=== PATIENT | female | born 1940 | race Caucasian/White ===

== ENCOUNTER 2024-02-22 13:11 | Emergency (ER) | payer MEDICARE, OTHER, SELFPAY ==
[2024-02-22 13:13] VITALS: BP 150/74
--- NOTE | 2024-02-22 14:39 | ED.GENMED ---
History of Present Illness
General
Chief Complaint: Fall
Source: patient
Exam Limitations: none
Time Seen by Provider: 02/22/24 13:34
Nursing documentation reviewed up to this point in time: agreed with
History of Present Illness
History of Present Illness:
83-year-old female with past medical history of A-fib currently on Xarelto presenting to the emergency department after mechanical fall hitting her upper lip left hand and left knee no loss of and is otherwise feels well was able to walk into the
ER. Denies any numbness weakness nausea vomiting abdominal pain or neck pain.
Past History
Past History
ED Past Medical History: Arrthythmia, GERD, HTN, Hypercholesterolemia and NIDDM
ED Past Surgical History: Appendectomy and Cardiac (Ablation)
Social History
Tobacco: Non-smoker
Alcohol: Occasional
Drug: None
Personal:
Living: with family
Review of Systems
Review of Systems
Allergies reviewed?: Yes
All Other Systems: ROS reviewed and negative except as documented in HPI and ROS
Phy Exam
Physical Exam
Physical Exam:
GENERAL: Alert , in no apparent distress
EYE: pupils equal and reactive
NECK: No posterior neck pain no midline neck pain supple, no significant adenopathy.
ENT: o/p clr, mmm.
CARDIAC: Regular rate and rhythm .
LUNGS: Clear breath sounds bilaterally, no acute respiratory distress, no wheezes/rales/rhonchi
ABDOMEN: Soft, without focal tenderness, no r/g, no cvat
NEUROLOGICAL: Alert and oriented, no focal neuro deficits
SKIN: Warm and dry, skin intact.
MUSCULOSKELETAL: Slight bruising to the left hand, slight bruising to the left anterior knee with good range of motion and strength of both. No edema, well perfused.
PSYCH: Normal and appropriate interaction.
Course
Orders/Labs/Results
Orders:
Orders
02/22/24 13:16
CT Head W/o Iv Contrast Urgent
Reason For Exam: fall
CR Hand - Left Min 3 Views Urgent
Comment:
Reason For Exam: fall
CR Knee - Left 4 Or More View* Urgent
Comment:
Reason For Exam: fall
Vital Signs
Initial and Last Documented VS:
Initial Vital Signs
Temp Pulse Resp BP Pulse Ox
98.5 F 73 16 150/74 96
02/22/24 13:13 02/22/24 13:13 02/22/24 13:13 02/22/24 13:13 02/22/24 13:13
Last Documented Vital Signs
Temp Pulse Resp BP Pulse Ox
98.5 F 95 16 125/82 98
02/22/24 13:13 02/22/24 16:03 02/22/24 16:03 02/22/24 16:03 02/22/24 16:03
MDM/Problems Addressed
MDM/Problems Addressed:
83-year-old female presenting to the emergency department today after a mechanical fall hitting her upper lip left hand and left knee. Patient does have some bruising to the left hand and knee. X-ray without signs of fracture patient with soft
tissue injury to the area. Upper lip with no external laceration small internal laceration that does not require any emergent closure. No change in dentition no additional signs of trauma. Concerning the patient's on Xarelto CT scan of the head
was performed. CT without emergent findings stable for discharge return precautions given.
*Critical Care Note
Total Time (30-74mins, 75-104mins- exclusive of procedures): Not Applicable
ED Attending Note
-
Portions of this chart may have been created with voice recognition software.� Occasional wrong word or��sound alike� substitutions may have occurred due to the inherent limitations of voice recognition software.
Discharge Plan
Departure
Patient Disposition: Home (Routine Discharge)
Date of Disposition: 02/22/24
Time of Disposition: 16:01
Patient with high blood pressure during this ER visit?: No
Condition: Good
Covid-19: Not Applicable
Discharge Problem:
Fall, Contusion of hand, Contusion of knee, Injury of lip
Instructions: Preventing falls in adults
Prescriptions:
No Action
simvastatin 20 MG tablet
20 mg PO HS
Xarelto 20 MG tablet
20 mg PO QPM
metoprolol succinate 50 MG tablet extended release 24 hr
50 mg PO QPM
naproxen sodium [Aleve] 220 MG tablet
220 mg PO DAILYPRN PRN (Reason: pain)
metformin 500 MG tablet
500 mg PO BID@0800,1700 Qty: 0 0RF
valsartan-hydrochlorothiazide [Diovan HCT] 160-25 mg Tablet
1 tab PO DAILY
oxycodone 5 mg tablet
5 - 10 mg PO Q4HPRN PRN (Reason: moderate to severe pain) Qty: 14 0RF
Referrals:
Devan Christian MD [Family Provider] -
Activity Restrictions/Additional Instructions:
You came to the emergency department today after a fall. Here you had reassuring x-rays without signs of fracture please rest ice and compress your hand and knee. Otherwise you had a head CT without signs of acute injury. Please follow closely
with your primary care doctor return to the emergency department any worsening, new or concerning symptoms.
Interventions
Interventions:
*Risk Screen - Suicide Last Done: 02/22/24 13:13
*General Assessment Last Done: 02/22/24 13:13
*Neglect/Abuse Screening Last Done: 02/22/24 13:13
ED- Fall Risk Assessment Last Done: 02/22/24 16:03
*ED COVID-19 Vaccine History Last Done: 02/22/24 13:13
*Nursing Disposition Last Done: 02/22/24 16:03
ED-Musculoskeletal Assessment Last Done: 02/22/24 13:33
ED- Neurological Assessment Last Done: 02/22/24 13:33
ED-Skin Assessment Last Done: 02/22/24 13:33
Discharge Date and Time
Discharge Date/Time: 02/22/24 16:04
Print Language: GERMAN
[2024-02-22 16:03] VITALS: BP 125/82
== END 2024-02-22 16:04 | disposition home or self-care (01) ==
LOC: EMR 13:11
PROVIDERS: EMERGENCY PHYSICIAN Emergency Medicine; FAMILY PHYSICIAN Family Medicine
DX: S60.222A Contusion of left hand, initial encounter (principal); S80.02XA Contusion of left knee, initial encounter; S09.93XA Unspecified injury of face, initial encounter; W19.XXXA Unspecified fall, initial encounter; K21.9 Gastro-esophageal reflux disease without esophagitis; I10 Essential (primary) hypertension; E78.00 Pure hypercholesterolemia, unspecified; E11.9 Type 2 diabetes mellitus without complications; Z79.01 Long term (current) use of anticoagulants
CPT/HCPCS: 99284; 70450; 73130; 73564

== ENCOUNTER → 2024-03-13 12:34 | Outpatient (REF) | payer OTHER, SELFPAY | LOC: RAD 12:34 | PROVIDERS: ATTENDING PHYSICIAN Family Medicine | DX: S93.422A Sprain of deltoid ligament of left ankle, initial encounter (principal) | CPT/HCPCS: 73600 ==

== ENCOUNTER 2024-05-17 12:26 | Emergency (ER) | payer MEDICARE, OTHER, SELFPAY ==
[2024-05-17] VITALS (17 sets, daily range): BP systolic 87–155; BP diastolic 63–105
--- NOTE | 2024-05-17 13:07 | ED.GENMED ---
History of Present Illness
<Asad Fernandez PA-C - Last Filed: 05/17/24 15:32>
General
Chief Complaint: Cardiac Symptoms
Time Seen by Provider: 05/17/24 12:50
History of Present Illness
History of Present Illness:
83-year-old female with history of paroxysmal atrial fibrillation on Xarelto presents to the emergency department for evaluation of elevated heart rate. She was going to urgent care today for a Workmen's Comp. follow-up visit when she was noted to
be tachycardic and an EKG showed a wide-complex tachycardia. She denies any symptoms, specifically denies any chest pain or shortness of breath.
Past History
<Asad Fernandez PA-C - Last Filed: 05/17/24 15:32>
Past History
ED Past Medical History: Arrthythmia, GERD, HTN, Hypercholesterolemia and NIDDM
ED Past Surgical History: Appendectomy and Cardiac (Ablation)
Social History
Tobacco: Non-smoker
Alcohol: Occasional
Drug: None
Personal:
Living: with family
Review of Systems
<Asad Fernandez PA-C - Last Filed: 05/17/24 15:32>
Review of Systems
Allergies reviewed?: Yes
All Other Systems: ROS reviewed and negative except as documented in HPI and ROS
Phy Exam
<Asad Fernandez PA-C - Last Filed: 05/17/24 15:32>
Physical Exam
Physical Exam:
GEN: Well appearing, NAD, WDWN
HEENT: Oral mucosa moist, no scleral icterus
Cardiac: Marked tachycardia, no murmurs
Lung: No respiratory distress, no tachypnea, lungs clear to auscultation bilaterally
MSK: No gross deformity or injuries
Skin: Good color, no pallor or jaundice, no rashes
Neuro: AO x3, moves all extremities freely
Psych: Calm, cooperative
Course
<Asad Fernandez PA-C - Last Filed: 05/17/24 15:32>
Orders/Labs/Results
Orders:
Orders
05/17/24 12:32
EKG [Electrocardiogram (*1)] Urgent
Reason for Study: Atrial Fibrillation
EKG- Treatment ONCE
05/17/24 13:06
Diltiazem HCl [Cardizem] 15 mg IV NOW STA
05/17/24 13:13
Complete Blood Count/With Diff Urgent
Comprehensive Metabolic Panel Urgent
05/17/24 13:19
EKG [Electrocardiogram (*1)] Urgent
Reason for Study: Abnormal EKG
05/17/24 13:20
EKG- Treatment ONCE
05/17/24 13:57
Propofol [Diprivan] 20 ml .ROUTE .STK-MED
05/17/24 14:18
EKG [Electrocardiogram (*1)] Urgent
Reason for Study: Abnormal EKG
EKG- Treatment ONCE
Abnormal Lab Results
05/17/24
13:13
Absolute Monos (auto) 0.8 H 10^3/uL
(0.1-0.6)
BUN 26 H mg/dl
(7-17)
Glucose 122 H mg/dl
(70-99)
05/17/24 13:13
05/17/24 13:13
Vital Signs
Initial and Last Documented VS:
Initial Vital Signs
Temp Pulse Resp BP Pulse Ox
98.2 F 141 18 155/84 96
05/17/24 12:28 05/17/24 12:28 05/17/24 12:28 05/17/24 12:28 05/17/24 12:28
Last Documented Vital Signs
Temp Pulse Resp BP Pulse Ox
98.2 F 69 20 106/64 96
05/17/24 12:28 05/17/24 14:55 05/17/24 14:55 05/17/24 14:55 05/17/24 14:55
<Елена Barber MD - Last Filed: 05/17/24 15:18>
Orders/Labs/Results
Orders:
Orders
05/17/24 12:32
EKG [Electrocardiogram (*1)] Urgent
Reason for Study: Atrial Fibrillation
EKG- Treatment ONCE
05/17/24 13:06
Diltiazem HCl [Cardizem] 15 mg IV NOW STA
05/17/24 13:13
Complete Blood Count/With Diff Urgent
Comprehensive Metabolic Panel Urgent
05/17/24 13:19
EKG [Electrocardiogram (*1)] Urgent
Reason for Study: Abnormal EKG
05/17/24 13:20
EKG- Treatment ONCE
05/17/24 13:57
Propofol [Diprivan] 20 ml .ROUTE .STK-MED
05/17/24 14:18
EKG [Electrocardiogram (*1)] Urgent
Reason for Study: Abnormal EKG
EKG- Treatment ONCE
Abnormal Lab Results
05/17/24
13:13
Absolute Monos (auto) 0.8 H 10^3/uL
(0.1-0.6)
BUN 26 H mg/dl
(7-17)
Glucose 122 H mg/dl
(70-99)
05/17/24 13:13
05/17/24 13:13
Vital Signs
Initial and Last Documented VS:
Initial Vital Signs
Temp Pulse Resp BP Pulse Ox
98.2 F 141 18 155/84 96
05/17/24 12:28 05/17/24 12:28 05/17/24 12:28 05/17/24 12:28 05/17/24 12:28
Last Documented Vital Signs
Temp Pulse Resp BP Pulse Ox
98.2 F 69 20 106/64 96
05/17/24 12:28 05/17/24 14:55 05/17/24 14:55 05/17/24 14:55 05/17/24 14:55
Procedures
<Asad Fernandez PA-C - Last Filed: 05/17/24 15:32>
Cardioversion
Indication:: Afib
Performed by:: Asad Fernandez PA-C
Synchronized?: Yes
Energy Used: 150 joules
Number of attempts: 1
Successful?: Yes
Complications: none
ASA Risk Score: Class II
Any reaction or bad outcome to prior sedation/anesthesia?: No history of a reaction
Sedation level to be attained: minimal
Chart and allergies reviewed: Yes
Patient reassessed prior to sedation: Yes
Time out completed at (validating right patient & procedure): 13:13
History of difficult intubation: No
Airway free of obstruction: Yes
Patient has a gag reflex: Yes
Patient is able to open mouth: Yes
Patient has no dentures: Yes
Patient has no loose teeth: Yes
Medication administered by Provider during Moderate Sedation: IV Propofol (mg)
Total dose administered: 40
Time drug administered: 13:15
Start Time: 13:15
Stop Time: 13:25
<Asad Fernandez PA-C - Last Filed: 05/17/24 15:32>
MDM/Problems Addressed
MDM/Problems Addressed:
Patient was initially rate controlled with IV diltiazem however did not convert despite this, after discussion with the patient she agreed to electrical cardioversion and this was performed with good results and no complications. No medication
changes recommended at this time. Recommend cardiology follow-up on a routine basis
<Asad Fernandez PA-C - Last Filed: 05/17/24 15:32>
*Critical Care Note
Total Time (30-74mins, 75-104mins- exclusive of procedures): Not Applicable
ED Attending Note
<Asad Fernandez PA-C - Last Filed: 05/17/24 15:32>
-
Portions of this chart may have been created with voice recognition software.� Occasional wrong word or��sound alike� substitutions may have occurred due to the inherent limitations of voice recognition software.
<Елена Barber MD - Last Filed: 05/17/24 15:18>
ED Attending Note
Patient seen and examined by attending physician: Yes
I performed the substantive portion of visit, reviewed & personally made and approve the management plan that is documented in note by myself or YOVANI.: Yes
ED Attending Note:
Patient appears well and comfortable. Lungs are clear. Heart is irregular and tachycardic. There is no sign of heart failure or acute coronary syndrome. Patient is smiling and conversational. I personally got consent from the patient for
conscious station cardioversion. We went over risks and benefits of this. I personally was present for the conscious sedation cardioversion.
Discharge Plan
Departure
Patient Disposition: Home (Routine Discharge)
Date of Disposition: 05/17/24
Time of Disposition: 15:20
Patient with high blood pressure during this ER visit?: No
Discharge Problem:
Atrial flutter with rapid ventricular response
Instructions: Atrial Flutter (DC), Moderate Sedation in Adults (DC)
Prescriptions:
No Action
simvastatin 20 MG tablet
20 mg PO HS
Xarelto 20 MG tablet
20 mg PO QPM
metoprolol succinate 50 MG tablet extended release 24 hr
50 mg PO QPM
naproxen sodium [Aleve] 220 MG tablet
220 mg PO DAILYPRN PRN (Reason: pain)
metformin 500 MG tablet
500 mg PO BID@0800,1700 Qty: 0 0RF
valsartan-hydrochlorothiazide [Diovan HCT] 160-25 mg Tablet
1 tab PO DAILY
oxycodone 5 mg tablet
5 - 10 mg PO Q4HPRN PRN (Reason: moderate to severe pain) Qty: 14 0RF
Referrals:
Osiel Schilling MD [Family Provider] -
Interventions
Interventions:
*Risk Screen - Suicide Last Done: 05/17/24 12:28
*General Assessment Last Done: 05/17/24 12:28
*Neglect/Abuse Screening Last Done: 05/17/24 14:28
*ED COVID-19 Vaccine History Last Done: 05/17/24 12:28
ED- Pulmonary Assessment Last Done: 05/17/24 12:59
ED- Cardiac Assessment Last Done: 05/17/24 12:59
Discharge Date and Time
Print Language: MACEDONIAN
[2024-05-17] MEDS: CARDIZEM 15 MG IV (13:15)
[2024-05-17 13:22] LABS: % Basophils 0.9 % (0-2); % Eosinophils 0.4 % (0-6); % Immature Granulocytes 0.3 % (0-0.5); % Lymphocytes 21.5 % (20.5-51.1); % Monocytes 8.4 % (1.7-9.3); % Neutrophils 68.5 % (42.2-75.2); Absolute Basophils 0.1 10^3/uL (0-0.2); Absolute Monocytes 0.8 10^3/uL (0.1-0.6); Absolute Neutrophils 6.3 10^3/uL (1.4-6.5); Hematocrit 44.6 % (37.0-47.0); Hemoglobin 15.3 g/dL (12.0-16.0); Mean Corp Hgb Conc. 34.3 g/dL (33.0-37.0); Mean Corpuscular Hgb 29.4 pg (27.0-31.0); Mean Corpuscular Volume 85.6 fL (81.0-99.0); Mean Platelet Volume 9.2 fL (7.4-10.4); Nucleated Red Blood Cells % 0 %; Platelet Count 256 10^3/uL (130-400); Red Blood Cell Count 5.21 10^6/uL (4.20-5.40); Red Cell Dist. Width 13.8 % (11.5-14.5); White Blood Cell Count 9.2 10^3/uL (4.8-10.8)
[2024-05-17 13:39] LABS: ALT (SGPT) 27 U/L (0-35); AST (SGOT) 31 U/L (14-36); Albumin 4.2 g/dl (3.5-5.0); Alkaline Phosphatase 70 U/L (38-126); Blood Urea Nitrogen 26 mg/dl (7-17); Calcium 9.5 mg/dl (8.4-10.2); Carbon Dioxide 23 mmol/L (22-30); Chloride 103 mmol/L (98-107); Glucose 122 mg/dl (70-99); Potassium 4.1 mmol/L (3.5-5.1); Sodium 137 mmol/L (135-145); Total Protein 6.9 g/dl (6.3-8.2); eGFR > 60.00
== END 2024-05-17 15:35 | disposition home or self-care (01) ==
LOC: EMR 12:26
PROVIDERS: Physician Assistant; EMERGENCY PHYSICIAN Emergency Medicine; FAMILY PHYSICIAN Internal Medicine Cardiovascular Disease
DX: I48.92 Unspecified atrial flutter (principal); I48.0 Paroxysmal atrial fibrillation; K21.9 Gastro-esophageal reflux disease without esophagitis; E78.00 Pure hypercholesterolemia, unspecified; E11.9 Type 2 diabetes mellitus without complications; I10 Essential (primary) hypertension; Z79.01 Long term (current) use of anticoagulants; Z90.49 Acquired absence of other specified parts of digestive tract
CPT/HCPCS: 99283; 92960; 96374; 80053; 85025; 93005

== ENCOUNTER → 2025-02-18 10:12 | Outpatient (REF) | payer MEDICARE, OTHER, SELFPAY ==
[2025-02-18 11:59] LABS: Hematocrit 38.1 % (37.0-47.0); Hemoglobin 12.6 g/dL (12.0-16.0); Mean Corp Hgb Conc. 33.1 g/dL (33.0-37.0); Mean Corpuscular Volume 88.4 fL (81.0-99.0); Nucleated Red Blood Cells % 0 %; Platelet Count 274 10^3/uL (130-400); Red Cell Dist. Width 13.3 % (11.5-14.5)
[2025-02-18 12:43] LABS: ALT (SGPT) 12 U/L (0-35); AST (SGOT) 21 U/L (14-36); Albumin 4.0 g/dl (3.5-5.0); Alkaline Phosphatase 57 U/L (38-126); Blood Urea Nitrogen 25 mg/dl (7-17); Calcium 9.0 mg/dl (8.4-10.2); Carbon Dioxide 28 mmol/L (22-30); Chloride 104 mmol/L (98-107); Glucose 107 mg/dl (70-99); HDL Cholesterol 65 mg/dl; LDL Cholesterol, Calculated 86 mg/dl; Potassium 4.6 mmol/L (3.5-5.1); Sodium 138 mmol/L (135-145); Total Protein 6.5 g/dl (6.3-8.2); Very Low Density Lipoprotein 11 mg/dl (0-30); eGFR > 60.00
[2025-02-18 14:21] LABS: Glycohemoglobin (HgbA1c) 5.8 % (4.0-5.6)
== END ==
LOC: REG 10:12
PROVIDERS: ATTENDING PHYSICIAN Family Medicine
DX: R73.03 Prediabetes (principal); I48.0 Paroxysmal atrial fibrillation; E78.00 Pure hypercholesterolemia, unspecified; I10 Essential (primary) hypertension; M17.12 Unilateral primary osteoarthritis, left knee; I48.92 Unspecified atrial flutter; R73.9 Hyperglycemia, unspecified; E66.01 Morbid (severe) obesity due to excess calories
CPT/HCPCS: 36415; 80053; 80061; 83036; 85025

== ENCOUNTER 2025-03-27 19:03 | Inpatient (IN) | payer MEDICARE, OTHER, SELFPAY ==
[2025-03-27 16:03] VITALS: BP 151/81
[2025-03-27 16:30] LABS: Hematocrit 25.1 % (37.0-47.0); Hemoglobin 8.3 g/dL (12.0-16.0); Mean Corp Hgb Conc. 33.1 g/dL (33.0-37.0); Mean Corpuscular Volume 84.2 fL (81.0-99.0); Nucleated Red Blood Cells % 0 %; Platelet Count 349 10^3/uL (130-400); Red Cell Dist. Width 13.5 % (11.5-14.5)
[2025-03-27 16:39] LABS: INR 1.43; PT 18.0 Sec (11.4-14.6)
[2025-03-27 16:40] LABS: APTT 26.4 Sec (23.4-35.0)
[2025-03-27 16:56] LABS: ALT (SGPT) 13 U/L (0-35); AST (SGOT) 19 U/L (14-36); Albumin 3.9 g/dl (3.5-5.0); Alkaline Phosphatase 65 U/L (38-126); Blood Urea Nitrogen 25 mg/dl (7-17); Calcium 8.7 mg/dl (8.4-10.2); Carbon Dioxide 24 mmol/L (22-30); Chloride 106 mmol/L (98-107); Glucose 100 mg/dl (70-99); Potassium 3.8 mmol/L (3.5-5.1); Sodium 137 mmol/L (135-145); Total Protein 6.3 g/dl (6.3-8.2); eGFR > 60.00
--- NOTE | 2025-03-27 18:06 | ED.GENMED ---
History of Present Illness
General
Chief Complaint: Abnormal Lab Value
Source: patient and spouse
Time Seen by Provider: 03/27/25 17:46
History of Present Illness
History of Present Illness:
Note:
CHIEF COMPLAINT(S)
Low hemoglobin and dark stools.
HISTORY OF PRESENT ILLNESS
The patient is an 84-year-old female presenting with a recent finding of low hemoglobin levels and dark stools. She reports noticing black, tarry stools starting from the middle of last week, persisting for a couple of days, before transitioning to
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 The stools were notably dark when observed after flushing the toilet, but no obvious blood was noticed initially. The patient is currently on a blood thinner due to a history of atrial fibrillation. She denies any history of
gastrointestinal bleeding, ulcers, or previous gastrointestinal procedures except an 'upper GI' endoscopy performed many years ago, which she is unable to recall the findings of. The patient denies experiencing shortness of breath, lightheadedness,
or abdominal pain. She typically takes an afternoon nap and does not report any other significant symptoms impacting her daily routine. No previous history of similar episodes was noted. Patient missed she has been taking Naprosyn recently.
PAST MEDICAL AND SURGICAL HISTORY
The patient has a history of atrial fibrillation.
SOCIAL DETERMINANTS AFFECTING HEALTH
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
PHYSICAL EXAM
General: Alert, no acute distress.
Skin: Warm, dry.
Head: Normocephalic, atraumatic.
Neck: Supple, trachea midline.
Eye, Ears, Nose, Mouth, and Throat: Oral mucosa moist.
Cardiovascular: Heart regular, no edema.
Respiratory: Respirations are non-labored, no respiratory distress.
Gastrointestinal: Abdomen is non-tender and nondistended.
Rectal examination: Maroon-colored stool, positive for strong fecal occult blood test, no obvious rectal masses present.
Back: Normal range of motion, normal alignment.
Musculoskeletal: Normal range of motion, normal strength.
Neurological: Alert and oriented to person, place, time, and situation, no focal neurological deficit observed.
Psychiatric: Cooperative, appropriate mood and affect.
PROBLEM LIST
Acute:
- Gastrointestinal bleeding, likely source unidentified
- Anemia due to low hemoglobin levels
Chronic:
- Atrial fibrillation
PLAN
- Admit to the hospital for observation and further investigation due to gastrointestinal bleeding and active anticoagulation therapy.
- Monitor hemoglobin levels closely to assess for any negative trends, indicating active bleeding.
- Temporarily hold anticoagulation therapy to mitigate the risk of exacerbating the bleed.
- Consult gastrointestinal specialists to consider the necessity of endoscopy or imaging studies to determine the source of bleeding.
- Administer proton pump inhibitors intravenously to reduce gastric acidity and protect against potential ulceration.
- Initiate intravenous line placement for administration of medications and potential need for transfusion.
- Monitor vital signs and ensure patient comfort during hospitalization.
DIFFERENTIAL DIAGNOSIS
The Differential Diagnosis includes, in no particular order and is not limited to:
1. Gastrointestinal ulcer
2. Gastritis
3. Diverticular bleed
4. Esophageal varices
5. Arteriovenous malformation
6. Colonic carcinoma
7. Colonic polyps
8. Hemorrhoids
9. Inflammatory bowel disease
10. Medications effect due to anticoagulation or NSAID use.
EKG
My independent EKG interpretation is:
- Sinus rhythm with premature atrial contractions
- Right bundle branch block
- Normal axis
- No ischemic changes
Disposition:
SUMMARY OF ENCOUNTER
The patient, an 84-year-old female with a history of atrial fibrillation, hypertension, and hyperlipidemia, presented to the emergency department with gastrointestinal bleeding. She was found to have a hemoglobin level of 8.3 g/dL, significantly
lower than her baseline of 12.6 g/dL measured on February 18, 2025. Despite the drop in hemoglobin, the patient is currently asymptomatic but has a positive fecal occult blood test. The patients vital signs, including a blood pressure of 151/81 mmHg,
are stable. Given her symptoms and the risk of further bleeding, intravenous proton pump inhibitors were administered, and she is planned for admission for serial hemoglobin measurements and evaluation by gastroenterology.
DISPOSITION
Admit
ASSESSMENT
The patient has acute gastrointestinal bleeding leading to a significant drop in hemoglobin levels, likely secondary to gastrointestinal bleeding of undetermined etiology at this time, possibly exacerbated by anticoagulant use due to atrial
fibrillation.
EMERGENCY TREATMENTS ADMINISTERED
Protonix (pantoprazole) IV was administered.
MANAGEMENT OF THE PATIENTS CARE WAS DISCUSSED WITH
Case discussed with the hospitalist for admission and further management, including gastroenterology consultation.
PLAN
- Admit the patient for further observation and management.
- Conduct serial hemoglobin measurements to monitor for continued blood loss.
- Consult gastroenterology to evaluate the need for endoscopy to identify the source of bleeding.
- Hold anticoagulation therapy to prevent further bleeding.
- Maintain intravenous access for medication administration and potential transfusion.
MEDICAL DECISION MAKING
- Number and Complexity of Problems Addressed: Chronic conditions affecting care include atrial fibrillation, hypertension, and hyperlipidemia. Differential Diagnosis includes gastrointestinal ulcer, gastritis, diverticular bleed, esophageal
varices, arteriovenous malformation, colonic carcinoma, colonic polyps, hemorrhoids, inflammatory bowel disease, and medication effect due to anticoagulation.
- Data:
- Category 1:
- Baseline hemoglobin reviewed from previous record and recent test result revealing a significant drop.
- Category 3:
- Discussion of patient management with hospitalist for admission and possible gastroenterology intervention.
- Risk:
- Decisions regarding admission for further evaluation due to the significant drop in hemoglobin and potential for ongoing bleeding, as well as holding anticoagulation due to the risk of exacerbating the bleeding.
DIAGNOSIS
- Anemia due to acute blood loss (ICD-10: D62)
- Gastrointestinal hemorrhage, unspecified (ICD-10: K92.2)
- NSAID use
Past History
Past History
ED Past Medical History: Arrthythmia, GERD, HTN, Hypercholesterolemia and NIDDM
ED Past Surgical History: Appendectomy and Cardiac (Ablation)
Social History
Tobacco: Non-smoker
Alcohol: Occasional
Drug: None
Personal:
Living: with family
Phy Exam
Physical Exam
Physical Exam:
.
Course
Orders/Labs/Results
Orders:
Orders
03/27/25 16:07
EKG [Electrocardiogram (*1)] Urgent
Reason for Study: Fatigue / Weakness
03/27/25 16:08
EKG- Treatment ONCE
03/27/25 16:16
Type+Screen Urgent
Complete Blood Count/With Diff Urgent
Comprehensive Metabolic Panel Urgent
PTT Urgent
Prothrombin Time Urgent
03/27/25 18:09
IV Insert/Care/Rem.- Treatment PRN
Pantoprazole [Protonix IV] 80 mg IV NOW STA
Abnormal Lab Results
03/27/25
16:16
RBC 2.98 L 10^6/uL
(4.20-5.40)
Hgb 8.3 L g/dL
(12.0-16.0)
Hct 25.1 L %
(37.0-47.0)
Absolute Monos (auto) 1.2 H 10^3/uL
(0.1-0.6)
Monocytes % 11.7 H %
(1.7-9.3)
PT 18.0 H Sec
(11.4-14.6)
BUN 25 H mg/dl
(7-17)
Glucose 100 H mg/dl
(70-99)
03/27/25 16:16
03/27/25 16:16
Vital Signs
Initial and Last Documented VS:
Initial Vital Signs
Temp Pulse Resp BP Pulse Ox
98.6 F 92 16 151/81 98
03/27/25 16:03 03/27/25 16:03 03/27/25 16:03 03/27/25 16:03 03/27/25 16:03
Last Documented Vital Signs
Temp Pulse Resp BP Pulse Ox
97.5 F 92 16 95/77 100
03/27/25 18:20 03/27/25 18:20 03/27/25 18:20 03/27/25 18:20 03/27/25 18:20
*Pulse Oximetry
SaO2: 98
Oxygen Mode of Delivery: Room air
Patient hypoxic: no
*Critical Care Note
Total Time (30-74mins, 75-104mins- exclusive of procedures): Not Applicable
ED Attending Note
-
Portions of this chart may have been created with voice recognition software.� Occasional wrong word or��sound alike� substitutions may have occurred due to the inherent limitations of voice recognition software.
Discharge Plan
Departure
Patient Disposition: Admit
Date of Disposition: 03/27/25
Time of Disposition: 18:06
Admit to: Telemetry
Presentation/result/management discussed w/ accepting MD/DO: Hospitalist
Discharge Problem:
GI (gastrointestinal bleed), Anemia
Prescriptions:
No Action
simvastatin 20 MG tablet
20 mg PO DAILY
Xarelto 20 MG tablet
20 mg PO QPM
metoprolol succinate 50 MG tablet extended release 24 hr
50 mg PO QPM
naproxen sodium [Aleve] 220 MG tablet
220 mg PO DAILYPRN PRN (Reason: mild pain)
valsartan-hydrochlorothiazide [Diovan HCT] 160-25 mg Tablet
1 tab PO DAILY
calcium carbonate [Tums] 200 mg calcium (500 mg) Tablet,Chewable
200 mg PO BIDPRN PRN (Reason: gerd)
Referrals:
Devan Christian MD [Family Provider, Family Practice]
Interventions
Interventions:
*Risk Screen - Suicide Last Done: 03/27/25 16:03
*General Assessment Last Done: 03/27/25 18:20
*Neglect/Abuse Screening Last Done: 03/27/25 16:03
*ED- Fall Risk Assessment Last Done: 03/27/25 18:20
*ED COVID-19 Vaccine History Last Done: 03/27/25 18:20
Discharge Date and Time
Print Language: DJIBOUTIAN
[2025-03-27 18:11] VITALS: BP 95/77
[2025-03-27 18:20] VITALS: BP 95/77
[2025-03-27] MEDS: PROTONIX IV 80 MG IV (18:38)
--- NOTE | 2025-03-27 18:43 | HPS.HSE ---
Family Physician
-
Family Physician: Devan Christian
Chief Complaint
-
black tarry stools
History of Present Illness
84-year-old female past medical history of paroxysmal atrial fibrillation on Xarelto, first-degree AV block, right bundle branch block, hypertension, hypercholesteremia, mild valvular disease, venous varicosities, CKD, GERD, hiatal hernia, colon
polyps, hemorrhoids, pancreatitis, left adrenal adenoma, diabetes, lumbar degenerative disc disease, osteoarthritis, osteopenia, history of Lyme's disease, insomnia, obesity, presenting with low hemoglobin level and black tarry stools. She had
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 Stools are more watery than usual. Denies abdominal pain or vomiting. Denies chest pain or shortness of breath or dizziness
but does feel more fatigued.
She takes NSAIDs a few times a week. Denies alcohol.
She denies any prior history of GI bleeding, ulcers. She states that she did have a prior EGD and colonoscopy many years ago which only showed colonic polyps. She denies shortness of breath, lightheadedness or abdominal pain.
Medical History
Past Medical History
Past Medical History: Reports Other (paroxysmal atrial fibrillation on Xarelto, first-degree AV block, right bundle branch block, hypertension, hypercholesteremia, mild valvular disease, venous varicosities, CKD, GERD, hiatal hernia, colon polyps,
hemorrhoids, pancreatitis, left adrenal adenoma, diabetes, lumbar degenerative disc disea)
Past Surgical History: Reports None
Social History
Tobacco: Non-smoker
Alcohol: None
Drug: None
Family History
Family History: Not pertinent
Allergies / Home Medications
Allergies reflects when Allergies were last updated in [facility].
Home Medications with original date entered in [facility]
Allergy/Medication List:
Allergies
Allergy/AdvReac Type Severity Reaction Status Date / Time
No Known Allergies Allergy Verified 03/27/25 16:03
Home Medications
simvastatin 20 mg tablet 20 mg PO DAILY High cholesterol 11/18/15
metoprolol succinate 50 mg tablet,extended release 24 hr 50 mg PO QPM Heart disease/condition 06/29/20
rivaroxaban 20 mg tablet (Xarelto) 20 mg PO QPM Blood clot prevention/tx 06/29/20
naproxen sodium 220 mg tablet (Aleve) 220 mg PO DAILYPRN PRN mild pain 11/02/21
valsartan 160 mg-hydrochlorothiazide 25 mg tablet (Diovan HCT) 1 tab PO DAILY 05/05/22
calcium carbonate (Tums) 200 mg PO BIDPRN PRN gerd 03/27/25
Review of Systems
-
History Source: Patient
A 12 point ROS was completed and negative except as noted: Yes
Constitutional: Reports No Symptoms
EENT: Reports No Symptoms
Respiratory: Reports No Symptoms
Cardiac: Reports No Symptoms
Abdomen/GI: Reports See HPI
: Reports No Symptoms
Musculoskeletal: Reports No Symptoms
Skin: Reports No Symptoms
Neurological: Reports No Symptoms
Endocrine: Reports No Symptoms
Hematologic/Lymphatic: Reports No Symptoms
Psych: Reports No Symptoms
Physical Exam
Vital Signs
Vital Signs
Temp Pulse Resp BP Pulse Ox
97.5 F 92 16 95/77 100
03/27/25 18:20 03/27/25 18:20 03/27/25 18:20 03/27/25 18:20 03/27/25 18:20
Physical Exam
General: Well Developed, Well Nourished and No Apparent Distress
HEENT: NormoCephalic, Moist mucous membranes and Atraumatic
Respiratory: Clear
Cardiac: S1/S2 and Regular Rhythm; No Murmur or Rub
GI: Soft, Non Tender, Non Distended and Normal Bowel Sounds; No Organomegaly
Rectal: Deferred by Provider
Musculoskeletal: No Clubbing, No Cyanosis and No Edema
Skin: No Rash
Neuro: Nonfocal/grossly intact
Laboratory Results
-
03/27/25 16:16
03/27/25 16:16
Laboratory Results
PT 18.0 Sec (11.4-14.6) H 03/27/25 16:16
INR 1.43 03/27/25 16:16
APTT 26.4 Sec (23.4-35.0) 03/27/25 16:16
Total Bilirubin 0.4 mg/dl (0.2-1.3) 03/27/25 16:16
AST 19 U/L (14-36) 03/27/25 16:16
ALT 13 U/L (0-35) 03/27/25 16:16
Alkaline Phosphatase 65 U/L (38-126) 03/27/25 16:16
Data Reviewed
-
Lab Data: Labs Reviewed by me
Old Records: Reviewed
Impression/Plan
-
IMPRESSION:
PLAN:
# Upper GI bleeding likely secondary to regular NSAID use
# Acute blood loss normocytic anemia
-Hemoglobin of 8.3 from 12.6 last month
- Clear liquid diet
- N.p.o. past midnight
-Hold Xarelto
-protonix 40 BID
- GI consulted
- Check iron studies, B12
Paroxysmal atrial fibrillation
- Hold Xarelto
- Continue metoprolol
First-degree AV block
Right bundle branch
Essential hypertension
- Hold valsartan/hydrochlorothiazide
Type 2 diabetes
- Hold metformin
- Insulin sliding scale
Hypercholesterolemia
- Continue statin
Mild valvular disease
History of venous varicosities
Chronic kidney disease
- Renal function at base
GERD/hiatal hernia
History of colon polyps
History of hemorrhoids
History of pancreatitis
Left adrenal adenoma
Lumbar degenerative disease/osteoarthritis
- Continue oxycodone
- Hold naproxen
Osteopenia
History of Lyme's disease
Insomnia
Obesity
Full code
DVT prophylaxis�SCDs
N.p.o. past midnight
[2025-03-27 19:00] VITALS: BP 109/55
[2025-03-27 20:51] VITALS: BMI 38.4
[2025-03-27 20:58] VITALS: BMI 38.4
[2025-03-27 21:47] LABS: Iron 24 ug/dl (37-170)
[2025-03-27 21:56] LABS: Total Iron Binding Capacity 417 ug/dl (265-497)
[2025-03-27 22:08] VITALS: BP 111/58
[2025-03-27 23:25] LABS: Ferritin 12.8 ng/ml (11.1-264.0)
[2025-03-27 23:39] LABS: Vitamin B12 393 pg/ml (239-931)
--- NOTE | 2025-03-28 00:02 | PTCARENOTE ---
Pt arrive around 20:30 via stretcher and ambulated to the bed. Pt oriented to unit, bed set at lowest position, side rails up, call correia within reach. Will continue plan of care.
[2025-03-28 04:00] VITALS: BP 113/68
[2025-03-28 06:03] LABS: Hematocrit 23.2 % (37.0-47.0); Hemoglobin 7.6 g/dL (12.0-16.0); Mean Corp Hgb Conc. 32.8 g/dL (33.0-37.0); Mean Corpuscular Volume 84.4 fL (81.0-99.0); Nucleated Red Blood Cells % 0 %; Platelet Count 318 10^3/uL (130-400); Red Cell Dist. Width 13.6 % (11.5-14.5)
--- NOTE | 2025-03-28 06:49 | CON.GI ---
Addendum entered and electronically signed by Tawanna Gifford MD 03/28/25 09:39:
I saw and examined the patient.
The STEEL SHOT HEADER OPERATOR or PA's note was reviewed and I agree with the note.
Comment:
Pt is a 84 y/o woman with a hx of a fib on xarelto, last dose 2 days ago. She had black tarry stools with a hx drop. positive nsaid hx
abd: soft, nontender
impression
anemia
GIB
hx of pancreatitis
hx of colon polyp in 2010
plan:
NPO
hold nsaids/xarelto
follow hgb
EGD
Original Note:
Consultation
-
Date/Time Consultation Requested: 03/27/25 2030
Date/Time Consultation Performed: 03/28/25 0800
Requesting Provider: Palomo Gilliland MD
Performing Provider: MAR Klein, Tawanna Gifford MD
Reason for Consultation: anemia, black/maroon stools
Medical History
Chief Complaint / HPI
Chief Complaint: black stools/fatigue
History of Present Illness:
Pt is an 84yo with hx afib on Xarelto with prior Cardioversion and ablation, first degree block, BBB, GERD, HTN, hyperlipidemia, NIDDM, CKD, valvular disease, DJD, pancreatitis with prior adri, colon polyps, hiatal hernia, hemorrhoids, adrenal
adenoma, insomnia, obesity with onset of fatigue with drop in hbg and dark tarry stools. She admits to dark stool about 1 1/2 weeks ago then some brown but only 1 stool daily. She denies dizziness + NSAID use a few timer per week and admits to
taking several doses last week with knee pain. On admission hbg 8.3 with prior hbg 12.6 on 02/18/25 with BUN of 25 and iron studies consistent with iron deficiency and maroon colored stool in ER. In review of records pt with EGD 2010 done for
anemia with HH, erythema in antrum without H. pylori, erosions in the gastric antrum, normal duodenum without any evidence of celiac disease. colonoscopy 2010 transverse colon Tubular adenoma removed, Poor prep, internal hemorrhoids. She had
follow up in 2021 after pancreatitis and given age and other medical issues she declined for further GI screening.
Pt currently otherwise denies odynophagia, dysphagia, wt loss, GERD, nausea, vomiting, abdominal pain diarrhea, constipation or red stools.
���
Past Medical History
Past Medical History: Arrhythmias (afib on Xarelto, first degree block, right BBB), GERD, HTN, Hypercholesterolemia, NIDDM, Renal Failure (CKD), Valvular Disease (mild to mod MR, mod TR) and Other (DJD, pancreatitis, colon polyps, hiatal hernia,
hemorrhoids, adrenal adenoma, osteopenia, lyme disease, insomnia, obesity )
Past Surgical History: Cardiac (cardioversion, ablation) and Orthopedic (shoulder surgery, TKR)
Social History
Tobacco: Non-Smoker
Alcohol: Occasional
Drug: None
Personal: Partner
Living: With Family
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
Family History
Family History: Other (no family hx colon CA or GI issues )
Allergies / Home Medications
Allergy/AdvReac Type Severity Reaction Status Date / Time
No Known Allergies Allergy Verified 03/27/25 16:03
�Medication �Instructions �Recorded
simvastatin 20 mg tablet 20 mg PO DAILY High cholesterol 11/18/15
metoprolol succinate 50 mg 50 mg PO QPM Heart 06/29/20
tablet,extended release 24 hr disease/condition
rivaroxaban 20 mg tablet (Xarelto) 20 mg PO QPM Blood clot 06/29/20
prevention/tx
naproxen sodium 220 mg tablet 220 mg PO DAILYPRN PRN mild pain 11/02/21
(Aleve)
valsartan 160 1 tab PO DAILY 05/05/22
mg-hydrochlorothiazide 25 mg
tablet (Diovan HCT)
calcium carbonate (Tums) 200 mg PO BIDPRN PRN gerd 03/27/25
Review of Systems
-
History Source: Patient
Constitutional: Reports Fatigue
EENT: Reports No Symptoms
Respiratory: Reports Trouble Breathing
Cardiac: Reports No Symptoms
Abdomen/GI: Reports Black Stools (black - marroon )
: Reports No Symptoms
Musculoskeletal: Reports Joint Pain (with NSAID use )
Skin: Reports No Symptoms
Neurological: Reports Weakness
Endocrine: Reports No Symptoms
Hematologic/Lymphatic: Reports Bleeding
Vital Signs
Temp Pulse Resp BP Pulse Ox
97.8 F 83 18 113/68 98
03/28/25 04:00 03/28/25 04:00 03/28/25 04:00 03/28/25 04:00 03/28/25 04:00
Physical Exam
Exam
General: Well Developed, Well Nourished and No Apparent Distress
HEENT: Normocephalic
Respiratory: Clear
Cardiac: Regular Rhythm
GI: Soft, Non Tender and Non Distended
Musculoskeletal: No Clubbing and No Cyanosis
Skin: Warm and Dry
Neuro: Awake, Alert and AO x 3
Psych: Calm
Results
WBC 7.4 10^3/uL (4.8-10.8) 03/28/25 05:42
Hgb 7.6 g/dL (12.0-16.0) L 03/28/25 05:42
Hct 23.2 % (37.0-47.0) L 03/28/25 05:42
MCV 84.4 fL (81.0-99.0) 03/28/25 05:42
Plt Count 318 10^3/uL (130-400) 03/28/25 05:42
Absolute Neuts (auto) 3.7 10^3/uL (1.4-6.5) 03/28/25 05:42
PT 18.0 Sec (11.4-14.6) H 03/27/25 16:16
INR 1.43 03/27/25 16:16
APTT 26.4 Sec (23.4-35.0) 03/27/25 16:16
Sodium 137 mmol/L (135-145) 03/27/25 16:16
Potassium 3.8 mmol/L (3.5-5.1) 03/27/25 16:16
Chloride 106 mmol/L (98-107) 03/27/25 16:16
Carbon Dioxide 24 mmol/L (22-30) 03/27/25 16:16
BUN 25 mg/dl (7-17) H 03/27/25 16:16
Creatinine 0.8 mg/dL (0.6-1.0) 03/27/25 16:16
Calcium 8.7 mg/dl (8.4-10.2) 03/27/25 16:16
Total Bilirubin 0.4 mg/dl (0.2-1.3) 03/27/25 16:16
AST 19 U/L (14-36) 03/27/25 16:16
ALT 13 U/L (0-35) 03/27/25 16:16
Alkaline Phosphatase 65 U/L (38-126) 03/27/25 16:16
Diagnostic Image Results:
Prior GI Procedures:
�Upper endoscopy in 2010 Dr. Saini for anemia, hiatal hernia, erythema in the antrum
��Colonoscopy in 2010, Dr. Saini transverse colon Tubular adenoma removed, Poor prep, internal hemorrhoid
Assessment / Plan
-
Pt is an 84yo with hx afib on Xarelto with prior Cardioversion and ablation, first degree block, BBB, GERD, HTN, hyperlipidemia, NIDDM, CKD, valvular disease, DJD, pancreatitis with prior adri, colon polyps, hiatal hernia, hemorrhoids, adrenal
adenoma, insomnia, obesity with onset of fatigue with drop in hbg and dark tarry stools. She admits to dark stool about 1 1/2 weeks ago then some brown but only 1 stool daily. She denies dizziness + NSAID use a few timer per week and admits to
taking several doses last week with knee pain. On admission hbg 8.3 with prior hbg 12.6 on 02/18/25 with BUN of 25 and iron studies consistent with iron deficiency and maroon colored stool in ER. In review of records pt with EGD 2010 done for
anemia with HH, erythema in antrum without H. pylori, erosions in the gastric antrum, normal duodenum without any evidence of celiac disease. colonoscopy 2010 transverse colon Tubular adenoma removed, Poor prep, internal hemorrhoids. She had
follow up in 2021 after pancreatitis and given age and other medical issues she declined for further GI screening.
-black/maroon stool with concern for GI bleeding
-symptomatic anemia with iron deficiency
-afb on Xarelto- prior ablation, cardioversion
-recent increased NSAID use with joint pain
-hx hiatal hernia
other med problems:
first degree block, BBB, GERD, HTN, hyperlipidemia, NIDDM, CKD, valvular disease, DJD, pancreatitis with prior adri, colon polyps, hemorrhoids, adrenal adenoma, insomnia, obesity
PLAN:
etiology of anemia with drop since February with black/maroon stools related to upper, lower vs SB bleeding-- pt with recent NSAID use possible PUD, anna lesion with HH vs other
Plan for EGD today if neg consider colonoscopy next as last was 2010
NPO
last Elquis 01/23 PM
NSAID avoidance
trend hbg and stool records-- transfuse as needed
cont PPI
cont IV iron
-
-
Thank you for consultation and allowing me to participate in the patient's care. Please call the workers compensation examiner GI physician during the after hours with any questions or concerns.
[2025-03-28 07:00] VITALS: BP 136/65
[2025-03-28 07:42] LABS: ALT (SGPT) 12 U/L (0-35); AST (SGOT) 19 U/L (14-36); Albumin 3.3 g/dl (3.5-5.0); Alkaline Phosphatase 60 U/L (38-126); Blood Urea Nitrogen 22 mg/dl (7-17); Calcium 8.8 mg/dl (8.4-10.2); Carbon Dioxide 28 mmol/L (22-30); Chloride 108 mmol/L (98-107); Estimated Creatinine Clearance 54 ml/min; Glucose 104 mg/dl (70-99); Potassium 3.9 mmol/L (3.5-5.1); Sodium 138 mmol/L (135-145); Total Protein 5.6 g/dl (6.3-8.2); eGFR > 60.00
--- NOTE | 2025-03-28 07:51 | W.PN.UPDATE ---
Update Note
Progress Note Update
I saw and evaluated the patient. I reviewed the resident�s note and agree with findings and plan as documented in the resident�s note.
Denies chest pain, shortness of breath, abdominal pain.
Gen: NAD, AAOx3.
Eyes: EOMI, PERRLA, no scleral icterus.
Neck: supple.
CV: RRR, +S1/S2, no m/r/g.
Resp: CTAB, no rales, wheezes, or rhonchi.
Abd: +BS, soft, NT, ND
Skin: No rashes.
Neuro: CN 2-12 intact, non-focal.
Psych: Normal mood and affect.
Acute blood loss anemia due to UGIB:
-with Fe def anemia
-likely secondary to regular NSAID use
-exacerbated by Xarelto
-Holding Xarelto
-cont PPI BID
-GI following
-EGD 03/28 with erosive gastritis and duodenitis
-start IV Fe
-trend Hb (trending down, may need transfusion)
-as per discussion with GI, possibly can restart Xarelto 03/29
Other problems:
PAF: holding home Xarelto, cont BB
RBBB
1st shaggy AVB
Essential HTN: holding home valsartan/HCTZ
DM2: SSI/accuchecks, holding home Metformin
Hypercholesterolemia: Cont statin
Mild valvular disease
History of venous varicosities
GERD/hiatal hernia
History of colon polyps
History of hemorrhoids
History of pancreatitis
Left adrenal adenoma
Lumbar degenerative disease/osteoarthritis: cont oxycodone. Holding home naproxen.
Osteopenia
History of Lyme's disease
Insomnia
Obesity
FULL/SCDs
[2025-03-28] MEDS: PROTONIX IV 40 MG IV ×2 (08:18→20:32)
[2025-03-28] MEDS: LIPITOR 10 MG PO (08:18)
[2025-03-28] MEDS: NSS (PRESERVATIVE FREE) 10 ML IV ×2 (08:18→20:32)
[2025-03-28 09:51] VITALS: BMI 38.4
--- NOTE | 2025-03-28 09:59 | W.PN.UPDATE ---
Update Note
Progress Note Update
EGD with erosive gastritis, duodenitis, no stigmata of bleeding but likely the prior source based on bun/cr and hx.
plan:
diet
monitor hgb and clinically today. ok for regular diet
if no further signs of bleeding today then no other intervention except avoiding nsaids
can restart xarelto tomorrow if no bleeding today
[2025-03-28 11:00] VITALS: BP 112/68
--- NOTE | 2025-03-28 12:33 | W.PN.HOSP.TC ---
Today's Communication/Plan
-
Per GI: No signs of active bleeding, can restart Xarelto tomorrow
continue to monitor hgb and signs of bleeding
No NSAIDs
Assessment / Plan
Assessment / Plan
84-year-old female past medical history of paroxysmal atrial fibrillation on Xarelto, hypertension, hypercholesteremia, venous varicosities, GERD, hiatal hernia, colon polyps, hemorrhoids, pancreatitis, left adrenal adenoma, diabetes presented with
black tarry stools. Notably, takes NSAIDs for knee pain.
#Erosive gastritis, Duodenitis
#Normocytic anemia
#Iron Deficiency
Iron <24L
-possibly d/t prior acute GI bleed, and cocurrent iron deficiency
-EGD: erosive gastritis, duodenitis, no stigmata of bleeding
- Regular diet
-IV Iron transfusion
-Hold Xarelto-- can restart tomorrow per GI
-protonix 40 BID
-No NSAIDs
-transfuse <7hgb or <8 hgb if actively bleeding or symptomatic
continue to check for hgb and signs of bleeding
Appreciate GI
#Paroxysmal atrial fibrillation
- Hold Xarelto-- continue tomorrow
- Continue metoprolol 50mg QPM
#Essential hypertension
- Hold valsartan/hydrochlorothiazide
-Continue metoprolol 50mg QPM
Type 2 diabetes
- Hold metformin
Hypercholesterolemia
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
DVT prophylaxis: SCDs
Full Code
Anticipated Discharge: 24 - 48 hours
Subjective/Interval History
-
Date of Service: March 28, 2025
The patient has has not had any bowel movement today. She denies any weakness,abdominal pain, nausea, vomiting, palpitations, shortness of breath, and lightheadedness.
Objective Data
-
Labs:
Laboratory Results
03/28/25
05:42
WBC 7.4
Hgb 7.6 L
Hct 23.2 L
Plt Count 318
Sodium 138
Potassium 3.9
Chloride 108 H
Carbon Dioxide 28
BUN 22 H
Creatinine 0.8
Glucose 104 H
Calcium 8.8
Total Bilirubin 0.7
AST 19
ALT 12
Alkaline Phosphatase 60
Vital Signs:
Vital Signs
Temp Pulse Resp BP Pulse Ox
97.9 F 72 18 112/68 99
03/28/25 11:00 03/28/25 11:00 03/28/25 11:00 03/28/25 11:00 03/28/25 11:00
I&O
03/27/25 03/28/25 03/29/25
06:59 06:59 06:59
Intake Total 120 / 120
Balance 120 / 120
Review of Systems
-
History Source: Patient
Constitutional: Reports Fatigue; Denies Fever
EENT: Reports No Symptoms Reported
Respiratory: Reports No Symptoms
Cardiac: Reports No Symptoms
Abdomen/GI: Denies Abdominal Pain, Nausea or Vomiting
Genitourinary: Reports No Symptoms
Musculoskeletal: Reports No Symptoms
Neuro: Reports No Symptoms
Physical Exam
-
General: No Apparent Distress, Comfortable and Conversant
HEENT: Normocephalic and Other (pale conjunctiva)
Respiratory: Clear to Auscultation
Cardiac: Regular Rhythm and S1/S2
GI: Soft, Nontender, Nondistended and Normal Bowel Sounds
Genito-urinary: No Costovertebral Tender
Musculoskeletal: No Clubbing, No Cyanosis and No Edema
Skin: Warm
Neuro: AO x 3 and No Motor Deficits
Psych: Calm
[2025-03-28] MEDS: FERRLECIT 110 MG IV (14:51)
[2025-03-28 15:00] VITALS: BP 109/75
--- NOTE | 2025-03-28 15:09 | CM ---
Patient seen at bedside with daughter Raquel
IA completed
IMM explained & signed. In chart
EGD today-erosive gastritis, duodenitis, no stigmata of bleeding
regular diet
Patient lives in a 1 story home with partner, 0 LISY
PLOF: Independent, drives
DME: [employer]
has had [facility] in past/[facility] in past
PCP: Devan Christian
Pharmacy: [address], [place]
PLAN: Home, no needs anticipated, CM to continue to follow
[2025-03-28] MEDS: TOPROL XL 50 MG PO (17:20)
[2025-03-28 19:00] VITALS: BP 120/50
[2025-03-28 23:00] VITALS: BP 108/59
[2025-03-29] VITALS (9 sets, daily range): BP systolic 102–134; BP diastolic 50–74
[2025-03-29] MEDS: PROTONIX IV 40 MG IV ×2 (08:40→20:14)
[2025-03-29] MEDS: LIPITOR 10 MG PO (08:41)
[2025-03-29] MEDS: NSS (PRESERVATIVE FREE) 10 ML IV ×3 (08:41→20:13)
[2025-03-29 08:45] LABS: Hematocrit 23.3 % (37.0-47.0); Hemoglobin 7.5 g/dL (12.0-16.0); Mean Corp Hgb Conc. 32.2 g/dL (33.0-37.0); Mean Corpuscular Volume 84.4 fL (81.0-99.0); Platelet Count 335 10^3/uL (130-400); Red Cell Dist. Width 13.8 % (11.5-14.5)
--- NOTE | 2025-03-29 08:45 | W.PN.HOSP.TC ---
Addendum entered and electronically signed by Elizabeth Chacon MD 03/29/25 17:19:
I saw and evaluated the patient independently. I reviewed the resident�s note and agree with findings and plan as documented by Dr. Campbell.
GENERAL: well developed, well nourished, female in no apparent distress
HEENT: NC/AT
HEART: regular rate and rhythm, +S1, +S2 with ectopy
LUNGS : clear to auscultation bilaterally
ABDOM: soft, nontender, nondistended, + bowel sounds
EXT: no cyanosis, clubbing, or edema
NEUROLOGIC: grossly intact
Acute blood loss anemia due to UGIB and iron deficiency--EGD 03/28 with erosive gastritis and duodenitis--all due to NSAIDS--told pt to avoid--exacerbated by Xarelto--GI cleared pt to resume Xarelto--HGB 7.5--will give 1 unit pRBC--hopeful d/c
tomorrow
Paroxysmal afib--holding home Xarelto, can restart per GI, cont BB
Essential HTN-- holding home valsartan/HCTZ
DM2--SSI/accuchecks, holding home Metformin
Hypercholesterolemia--Cont statin
Mild valvular disease
History of venous varicosities
GERD/hiatal hernia
Left adrenal adenoma
Lumbar degenerative disease/osteoarthritis-- cont oxycodone. Holding home naproxen.
Osteopenia
History of Lyme's disease
Insomnia
Obesity--affects all aspects of care
FULL CODE
SCDs
Original Note:
Today's Communication/Plan
-
Transfusing 1 PRBC
Restarting Xarelto
continue to monitor hgb and signs of bleeding
No NSAIDs
Assessment / Plan
Assessment / Plan
84-year-old female past medical history of paroxysmal atrial fibrillation on Xarelto, hypertension, hypercholesteremia, venous varicosities, GERD, hiatal hernia, colon polyps, hemorrhoids, pancreatitis, left adrenal adenoma, diabetes presented with
black tarry stools. Notably, takes NSAIDs for knee pain.
#Erosive gastritis, Duodenitis
#Normocytic anemia
#Iron Deficiency
Iron <24L
Hgb: 8.4--> 8.3--> 7.6--> 7.5
-possibly d/t prior acute GI bleed, and cocurrent iron deficiency
-EGD: erosive gastritis, duodenitis, no stigmata of bleeding
although no bleeding noted in EGD, Hgb is still dropping minimally and is significantly decreased compared to prior Hgb studies from previous admissions/outpatient lab in 02/11. Burgundy stool also noted last night. Will transfuse 1 PRBC and monitor
patient overnight.
-Transfuse 1 PRBC
-IV Iron transfusion
-restarted Xarelto QPM
-protonix 40 BID
-No NSAIDs
-transfuse <7hgb or <8 hgb if actively bleeding or symptomatic
continue to check for hgb and signs of bleeding
Appreciate GI
#Paroxysmal atrial fibrillation
-Xarelto 20mg QPM
- Continue metoprolol 50mg QPM
#Essential hypertension
- Hold valsartan/hydrochlorothiazide
-Continue metoprolol 50mg QPM
Type 2 diabetes
- Hold metformin
Hypercholesterolemia
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
DVT prophylaxis: SCDs
Full Code
Anticipated Discharge: Within 24 hours
Subjective/Interval History
-
Date of Service: March 29, 2025
The patient had a bowel movement yesterday, stool described as burgundy colored on record. She denies any abdominal pain, diarrhea, lightheadedness, dizziness, chest pain, syncope, and shortness of breath.
Objective Data
-
Labs:
Laboratory Results
03/29/25 03/29/25
07:12 07:15
WBC 8.2
Hgb 7.5 L
Hct 23.3 L
Plt Count 335
Sodium Pending
Potassium Pending
Chloride Pending
Carbon Dioxide Pending
BUN Pending
Creatinine Pending
Glucose Pending
Calcium Pending
Vital Signs:
Vital Signs
Temp Pulse Resp BP Pulse Ox
98.0 F 88 17 123/61 96
03/29/25 07:00 03/29/25 07:00 03/29/25 07:00 03/29/25 07:00 03/29/25 07:00
I&O
03/28/25 03/29/25 03/30/25
06:59 06:59 06:59
Intake Total 120 / 120 600 / 600
Balance 120 / 120 600 / 600
Review of Systems
-
History Source: Patient
Constitutional: Reports Fatigue; Denies Fever
EENT: Reports No Symptoms Reported
Respiratory: Reports No Symptoms
Cardiac: Reports No Symptoms
Abdomen/GI: Denies Abdominal Pain, Nausea or Vomiting
Genitourinary: Reports No Symptoms
Musculoskeletal: Reports No Symptoms
Neuro: Reports No Symptoms
Physical Exam
-
General: No Apparent Distress, Comfortable and Conversant
HEENT: Normocephalic and Other (pale conjunctiva)
Respiratory: Clear to Auscultation
Cardiac: S1/S2 and Irregular Rhythm
GI: Soft, Nontender, Nondistended and Normal Bowel Sounds
Genito-urinary: No Costovertebral Tender
Musculoskeletal: No Clubbing, No Cyanosis and No Edema
Skin: Warm
Neuro: AO x 3 and No Motor Deficits
Psych: Calm
[2025-03-29 09:08] LABS: Blood Urea Nitrogen 21 mg/dl (7-17); Calcium 8.3 mg/dl (8.4-10.2); Carbon Dioxide 27 mmol/L (22-30); Chloride 108 mmol/L (98-107); Estimated Creatinine Clearance 54 ml/min; Glucose 103 mg/dl (70-99); Potassium 4.0 mmol/L (3.5-5.1); Sodium 138 mmol/L (135-145); eGFR > 60.00
--- NOTE | 2025-03-29 10:49 | W.PN.GI.CBS2 ---
Today's Communication / Plan
-
PPI bid as outpatient
avoid nsaids
Assessment / Plan
-
Pt is an 84yo with hx afib on Xarelto with prior Cardioversion and ablation, first degree block, BBB, GERD, HTN, hyperlipidemia, NIDDM, CKD, valvular disease, DJD, pancreatitis with prior adri, colon polyps, hiatal hernia, hemorrhoids, adrenal
adenoma, insomnia, obesity with onset of fatigue with drop in hbg and dark tarry stools.
S/p EGD with erosive gastritis/duodenitis
plan:
hgb stable
PPI po bid as outpatient for 8 weeks
avoid nsaids
will have office call for outpatient f/u with her primary GI
will sign off call with questions
Subjective
Subjective
Date of Service: March 29, 2025
Pt doing well. s/p EGD with erosive gastritis/duodenitis. No abdominal pain
Objective
Data Reviewed
Laboratory Data:
Laboratory Results
03/29/25 07:12
03/29/25 07:10
Laboratory Results
PT 18.0 Sec (11.4-14.6) H 03/27/25 16:16
INR 1.43 03/27/25 16:16
APTT 26.4 Sec (23.4-35.0) 03/27/25 16:16
Total Bilirubin 0.7 mg/dl (0.2-1.3) 03/28/25 05:42
AST 19 U/L (14-36) 03/28/25 05:42
ALT 12 U/L (0-35) 03/28/25 05:42
Alkaline Phosphatase 60 U/L (38-126) 03/28/25 05:42
Vital Signs and I&O:
Vital Signs
Temp Pulse Resp BP Pulse Ox
98.0 F 88 17 123/61 96
03/29/25 07:00 03/29/25 07:00 03/29/25 07:00 03/29/25 07:00 03/29/25 07:00
I&O
03/28/25 03/29/25 03/30/25
06:59 06:59 06:59
Intake Total 120 / 120 600 / 600
Balance 120 / 120 600 / 600
Physical Exam
Physical Exam
GI: Soft, Non Distended and Non Tender
[2025-03-29] MEDS: FERRLECIT 110 MG IV (13:28)
[2025-03-29 17:43] LABS: Albumin 3.2 g/dl (3.5-5.0); Total Protein 5.4 g/dl (6.3-8.2)
[2025-03-29] MEDS: TOPROL XL 50 MG PO (17:55)
[2025-03-29] MEDS: XARELTO 20 MG PO (17:55)
[2025-03-30 03:00] VITALS: BP 131/67
[2025-03-30 06:36] LABS: Hematocrit 26.2 % (37.0-47.0); Hemoglobin 8.3 g/dL (12.0-16.0); Mean Corp Hgb Conc. 31.7 g/dL (33.0-37.0); Mean Corpuscular Volume 85.3 fL (81.0-99.0); Platelet Count 306 10^3/uL (130-400); Red Cell Dist. Width 14.1 % (11.5-14.5)
[2025-03-30 06:53] LABS: Blood Urea Nitrogen 20 mg/dl (7-17); Calcium 8.5 mg/dl (8.4-10.2); Carbon Dioxide 23 mmol/L (22-30); Chloride 113 mmol/L (98-107); Estimated Creatinine Clearance 54 ml/min; Glucose 144 mg/dl (70-99); Potassium 3.7 mmol/L (3.5-5.1); Sodium 138 mmol/L (135-145); eGFR > 60.00
[2025-03-30 07:00] VITALS: BP 137/74
[2025-03-30] MEDS: PROTONIX IV 40 MG IV (07:44)
[2025-03-30] MEDS: LIPITOR 10 MG PO (07:44)
--- NOTE | 2025-03-30 08:39 | W.PN.HOSP.TC ---
Addendum entered and electronically signed by Elizabeth Chacon MD 03/30/25 12:52:
I saw and evaluated the patient independently. I reviewed the resident�s note and agree with findings and plan as documented by Dr. Campbell.
GENERAL: well developed, well nourished, female in no apparent distress
HEENT: NC/AT
HEART: regular rate and rhythm, +S1, +S2 with ectopy
LUNGS : clear to auscultation bilaterally
ABDOM: soft, nontender, nondistended, + bowel sounds
EXT: no cyanosis, clubbing, or edema
NEUROLOGIC: grossly intact
Acute blood loss anemia due to UGIB and iron deficiency--EGD 03/28 with erosive gastritis and duodenitis--all due to NSAIDS--told pt to avoid--exacerbated by Xarelto--GI cleared pt to resume Xarelto--HGB 7.5, s/p 1 unit pRBC with improvement to
8.3--brown stool no further bleeding--OK for d/c
Paroxysmal afib-- restarted Xarelto per GI, cont BB
Essential HTN-- restart home valsartan/HCTZ
DM2--SSI/accuchecks, restart home Metformin
Hypercholesterolemia--Cont statin
Mild valvular disease
History of venous varicosities
GERD/hiatal hernia
Left adrenal adenoma
Lumbar degenerative disease/osteoarthritis-- cont oxycodone. Holding home naproxen.
Osteopenia
History of Lyme's disease
Insomnia
Obesity--affects all aspects of care
FULL CODE
SCDs
Original Note:
Today's Communication/Plan
-
Hgb 8.5 post 1 PRBC transfusion
continue to monitor hgb and signs of bleeding
No NSAIDs
Stable for discharge
per GI: continue Pantoprazole 40mg BID for 3 more months
Assessment / Plan
Assessment / Plan
84-year-old female past medical history of paroxysmal atrial fibrillation on Xarelto, hypertension, hypercholesteremia, venous varicosities, GERD, hiatal hernia, colon polyps, hemorrhoids, pancreatitis, left adrenal adenoma, diabetes presented with
black tarry stools. Notably, takes NSAIDs for knee pain.
#Erosive gastritis, Duodenitis
#Normocytic anemia
#Iron Deficiency
Iron <24L
Hgb: 8.4--> 8.3--> 7.6--> 7.5--> 8.3 post 1 PRBC transfusion, (-) black, tarry, or red stool output
-possibly d/t prior acute GI bleed, and cocurrent iron deficiency
-EGD: erosive gastritis, duodenitis, no stigmata of bleeding
-Transfused 1 PRBC
-IV Iron transfusion
-restarted Xarelto QPM--> no bleeding noted
-protonix 40 BID
-No NSAIDs
-transfuse <7hgb or <8 hgb if actively bleeding or symptomatic
continue to check for hgb and signs of bleeding
Per GI: PPI po bid as outpatient for 8 weeks
#Paroxysmal atrial fibrillation
-Xarelto 20mg QPM
- Continue metoprolol 50mg QPM
#Essential hypertension
- Hold valsartan/hydrochlorothiazide
-Continue metoprolol 50mg QPM
Type 2 diabetes
- Hold metformin
Hypercholesterolemia
- Continue [employer] atorvastatin 10mg PO OD
DVT prophylaxis: SCDs
Full Code
Anticipated Discharge: Today
Subjective/Interval History
-
Date of Service: March 30, 2025
The patient had a bowel movement yesterday, brown in color. She denies any known bleeding, weakness, dizziness, lightheadedness, palpitation, and chest pain. The patient is hopeful to go home today.
Objective Data
-
Labs:
Laboratory Results
03/30/25
05:28
WBC 8.5
Hgb 8.3 L
Hct 26.2 L
Plt Count 306
Sodium 138
Potassium 3.7
Chloride 113 H
Carbon Dioxide 23
BUN 20 H
Creatinine 0.8
Glucose 144 H
Calcium 8.5
Vital Signs:
Vital Signs
Temp Pulse Resp BP Pulse Ox
97.9 F 81 17 137/74 96
03/30/25 07:00 03/30/25 07:00 03/30/25 07:00 03/30/25 07:00 03/30/25 07:00
I&O
03/29/25 03/30/25 03/31/25
06:59 06:59 06:59
Intake Total 600 / 600 1380 / 1380
Balance 600 / 600 1380 / 1380
Review of Systems
-
History Source: Patient
Constitutional: Reports Fatigue; Denies Fever
EENT: Reports No Symptoms Reported
Respiratory: Reports No Symptoms
Cardiac: Reports No Symptoms
Abdomen/GI: Denies Abdominal Pain, Nausea or Vomiting
Genitourinary: Reports No Symptoms
Musculoskeletal: Reports No Symptoms
Neuro: Reports No Symptoms
Physical Exam
-
General: No Apparent Distress, Comfortable and Conversant
HEENT: Normocephalic and Other (pale conjunctiva)
Respiratory: Clear to Auscultation
Cardiac: Regular Rhythm and S1/S2
GI: Soft, Nontender, Nondistended and Normal Bowel Sounds
Genito-urinary: No Costovertebral Tender
Musculoskeletal: No Clubbing, No Cyanosis and No Edema
Skin: Warm
Neuro: AO x 3 and No Motor Deficits
Psych: Calm
[2025-03-30 11:00] VITALS: BP 122/79
--- NOTE | 2025-03-30 12:13 | CM ---
MD entered order for discharge.
Spoke with patient in room. Pt said she is ready for discharge.
Cr here to drive her home.
IMM reviewed with her and she agrees with dc. IMM signed on chart.
Offered VN she declined need.
PLAN Home no needs
--- NOTE | 2025-03-30 12:47 | W.DCSUMMARY ---
Addendum entered and electronically signed by Elizabeth Chacon MD 03/30/25 13:45:
Read, reviewed, and agree. See same day progress note for additional details. Time spent coordinating care, DC planning, review of DC plan of care with resident, transition of care, review of records in EMR, med rec, consults, notes, d/w
consultants, nursing, family, and CM = 31 minutes
Note has been provided for her to return to work on Apr 09, 2025.
Original Note:
Discharge Summary
Discharge Data
Date of Admission: 03/27/25
Date of Discharge: 03/30/25
-
Pending Results: No
Hospital Course
Discharging Physician : Elizabeth Chacon MD, Yuly Campbell MD
Disposition : Home
Primary care physician : Dr. Devan Christian
Principal Discharge diagnosis : Erosive gastritis, Duodenitis
Chronic Discharge diagnosis : Normocytic anemia, Iron Deficiency, Paroxysmal atrial fibrillation, Essential hypertension, Hypercholesterolemia, Non-Insulin Dependent Diabetes Mellitus
Hospital Course :
84-year-old female past medical history of paroxysmal atrial fibrillation on Xarelto, hypertension, hypercholesteremia, venous varicosities, GERD, hiatal hernia, colon polyps, hemorrhoids, pancreatitis, left adrenal adenoma, diabetes presented with
black tarry stools. Notably, takes NSAIDs a few times a week for knee pain.
At the Emergency Department, the patient was found to have a hemoglobin level of 8.3 g/dL, significantly lower than her baseline of 12.6 g/dL measured on February 18, 2025. Despite the drop in hemoglobin, the patient is currently asymptomatic but has
a positive fecal occult blood test. The patients vital signs, including a blood pressure of 151/81 mmHg, are stable. Given her symptoms and the risk of further bleeding, intravenous proton pump inhibitors were administered, and she was admitted for
further evaluation and management.
The following problems were addressed during this hospitalization:
#Erosive gastritis, Duodenitis
#Normocytic anemia
#Iron Deficiency
The patient was noted to have persistently worsening hemoglobin levels during admission. Xarelto was initially held, and NSAIDs were avoided. The patient was started on IV pantoprazole 40 mg twice daily. An esophagogastroduodenoscopy (EGD) performed
on 03/28/2025 revealed erosive gastritis and duodenitis, without stigmata of active or recent bleeding. However, prior gastrointestinal bleeding was still suspected based on the patient's elevated BUN/creatinine ratio and clinical history.
Concurrent iron deficiency anemia was also identified, with iron level <24, and the patient was treated with IV ferric sodium gluconate complex 125 mg.
Hemoglobin trended down to 7.5 g/dL, at which point the patient had burgundy-colored stool, raising further concern for bleeding. One unit of PRBCs was transfused, with post-transfusion hemoglobin increasing to 8.3 g/dL. Xarelto was subsequently
restarted without any signs of recurrent bleeding. The patient had two bowel movements thereafter, with no black, tarry, or red stool noted. Given the absence of active bleeding demonstrated clinical picture and EGD, stable hemoglobin, and
reassuring bowel movements, the patient was deemed clinically stable for discharge. Discharge plan includes outpatient follow-up and continuation of oral pantoprazole 40 mg twice daily for 3 month
#Paroxysmal atrial fibrillation
Xarelto 20mg QPM initially held, but continued after hemoglobin has normalized to check if patient is able to tolerate without bleeding. Stools were non-tarry, non-bloody. Allowed to resume as outpatient with follow up.
Metoprolol 50mg QPM was continued.
#Essential hypertension
Continued on metoprolol 50mg QPM, Valsartan/hydrochlorothiazide initially held, but will resume as outpatient.
#Type 2 diabetes
Continue Metformin as outpatient
#Hypercholesterolemia
Continue atorvastatin 10mg once a day as outpatient.
Procedure findings :
Upper GI endoscopy (03/28/2025):
Findings:
- A 2 cm hiatal hernia was present.
- Three dispersed erosions with no bleeding and no stigmata of
recent bleeding were found in the gastric antrum and in the gastric
body.
- Patchy erythematous mucosa and with no stigmata of bleeding was
found in the duodenal bulb.
Impression:
- 2 cm hiatal hernia.
- Erosive gastropathy with no bleeding and no stigmata of recent
bleeding.
- Erythematous duodenopathy.
- No specimens collected
Discharge Plan
-
Patient Disposition: Home (Routine Discharge)
Discharge Diagnosis/Procedures: Erosive gastritis, Duodenitis
Normocytic anemia
Iron Deficiency
Paroxysmal atrial fibrillation
Essential hypertension
Hypercholesterolemia
Non-Insulin Dependent Diabetes Mellitus
Condition: Good
Diet: Low Cholesterol
Activity: As tolerated
Driving Restrictions: As prior to admission
Bathing Restrictions: OK to Shower
Blood Work: Repeat Complete Blood Count in 3 days
Referrals:
Devan Christian MD [Family Provider, Family Practice] - in less than 1 week
Aishwarya Saini MD [Active, Gastroenterology]
Referral Note: Dr. Saini's office will call you to make an appointment.
Additional Discharge Medication Instructions: Take Pantoprazole 40mg 1 tablet for 3 months.
Do not take NSAIDS like: Aspirin, Ibuprofen (Advil, Motrin), Naproxen (Aleve, Naprosyn)!!
Take Acetaminophen (Tylenol) instead, if you need pain relief.
Consult your doctor or return to ER if you notice bloody stools, dizziness, syncope, and new concerning symptoms.
Dr. Saini's office will call you to make an appointment.
Prescriptions:
New
pantoprazole 40 mg tablet,delayed release (DR/EC)
40 mg PO BID 56 Days Qty: 112 0RF
Continued
simvastatin 20 MG tablet
20 mg PO DAILY
Xarelto 20 MG tablet
20 mg PO QPM
metoprolol succinate 50 MG tablet extended release 24 hr
50 mg PO QPM
calcium carbonate [Tums] 200 mg calcium (500 mg) Tablet,Chewable
200 mg PO BIDPRN PRN (Reason: gerd)
valsartan-hydrochlorothiazide [Diovan HCT] 160-25 mg Tablet
1 tab PO DAILY Qty: 0 0RF
Discontinued
naproxen sodium [Aleve] 220 MG tablet
220 mg PO DAILYPRN PRN (Reason: mild pain)
Discharge Orders:
Discharge Patient (As Directed); Ordered 03/30/25
Ordered By: Yuly Campbell
Discharge Date and Time
Discharge Date/Time: 03/30/25 12:44
Print Language: GEORGIAN
== END 2025-03-30 12:44 | disposition home or self-care (01) | DRG 378 ==
LOC: 3 WEST ACU 19:03
PROVIDERS: Nurse Practitioner Adult Health; Student in an Organized Health Care Education/Training Program; ADMITTING PHYSICIAN Hospitalist; ATTENDING PHYSICIAN Internal Medicine; CONSULT PHYSICIAN Internal Medicine; EMERGENCY PHYSICIAN Emergency Medicine; FAMILY PHYSICIAN Family Medicine
PROC: 0DJ08ZZ Inspection of Upper Intestinal Tract, Via Natural or Artificial Opening Endoscopic (ICD-10-PCS; 2025-03-28)
PROC: 30233N1 Transfusion of Nonautologous Red Blood Cells into Peripheral Vein, Percutaneous Approach (ICD-10-PCS; 2025-03-29)
DX: K29.61 Other gastritis with bleeding (principal); D62 Acute posthemorrhagic anemia; K29.81 Duodenitis with bleeding; T39.395A Adverse effect of other nonsteroidal anti-inflammatory drugs [NSAID], initial encounter; I48.0 Paroxysmal atrial fibrillation; K44.9 Diaphragmatic hernia without obstruction or gangrene; K31.89 Other diseases of stomach and duodenum; D50.9 Iron deficiency anemia, unspecified; E11.22 Type 2 diabetes mellitus with diabetic chronic kidney disease; N18.9 Chronic kidney disease, unspecified; E78.00 Pure hypercholesterolemia, unspecified; K21.9 Gastro-esophageal reflux disease without esophagitis; E66.9 Obesity, unspecified; I12.9 Hypertensive chronic kidney disease with stage 1 through stage 4 chronic kidney disease, or unspecified chronic kidney disease; D35.02 Benign neoplasm of left adrenal gland; M19.90 Unspecified osteoarthritis, unspecified site; M85.80 Other specified disorders of bone density and structure, unspecified site; G47.00 Insomnia, unspecified; I09.1 Rheumatic diseases of endocardium, valve unspecified; Z79.01 Long term (current) use of anticoagulants; Z79.84 Long term (current) use of oral hypoglycemic drugs; Z79.899 Other long term (current) drug therapy; Z87.891 Personal history of nicotine dependence; Z68.38 Body mass index [BMI] 38.0-38.9, adult
CPT/HCPCS: 36415; 80048; 80053; 82040; 82607; 82728; 83540; 83550; 84155; 85025; 85027; 85610; 85730; 86850; 86900; 86901; 86920; 93005; 96374; 99284; J2916; P9016

== ENCOUNTER → 2025-04-14 10:44 | Outpatient (REF) | payer MEDICARE, OTHER, SELFPAY ==
[2025-04-14 11:49] LABS: Hematocrit 33.5 % (37.0-47.0); Hemoglobin 10.7 g/dL (12.0-16.0); Mean Corp Hgb Conc. 31.9 g/dL (33.0-37.0); Mean Corpuscular Volume 85.2 fL (81.0-99.0); Nucleated Red Blood Cells % 0 %; Platelet Count 368 10^3/uL (130-400); Red Cell Dist. Width 15.2 % (11.5-14.5)
== END ==
LOC: REG 10:44
PROVIDERS: ATTENDING PHYSICIAN Physician Assistant; FAMILY PHYSICIAN Family Medicine
DX: D50.0 Iron deficiency anemia secondary to blood loss (chronic) (principal)
CPT/HCPCS: 36415; 85025

== ENCOUNTER → 2025-05-06 11:20 | Outpatient (REF) | payer MEDICARE, OTHER, SELFPAY ==
[2025-05-06 12:13] LABS: Hematocrit 39.9 % (37.0-47.0); Hemoglobin 12.7 g/dL (12.0-16.0); Mean Corp Hgb Conc. 31.8 g/dL (33.0-37.0); Mean Corpuscular Volume 86.9 fL (81.0-99.0); Nucleated Red Blood Cells % 0 %; Platelet Count 299 10^3/uL (130-400); Red Cell Dist. Width 17.9 % (11.5-14.5)
== END ==
LOC: REG 11:20
PROVIDERS: ATTENDING PHYSICIAN Internal Medicine Gastroenterology; FAMILY PHYSICIAN Family Medicine
DX: C50.811 Malignant neoplasm of overlapping sites of right female breast (principal)
CPT/HCPCS: 36415; 85025

== ENCOUNTER → 2025-06-02 10:46 | Outpatient (REF) | payer MEDICARE, OTHER, SELFPAY ==
[2025-06-02 11:52] LABS: Hematocrit 43.7 % (37.0-47.0); Hemoglobin 14.2 g/dL (12.0-16.0); Mean Corp Hgb Conc. 32.5 g/dL (33.0-37.0); Mean Corpuscular Volume 84.9 fL (81.0-99.0); Nucleated Red Blood Cells % 0 %; Platelet Count 264 10^3/uL (130-400); Red Cell Dist. Width 18.7 % (11.5-14.5)
== END ==
LOC: REG 10:46
PROVIDERS: ATTENDING PHYSICIAN Internal Medicine Gastroenterology; FAMILY PHYSICIAN Family Medicine
DX: D50.8 Other iron deficiency anemias (principal)
CPT/HCPCS: 36415; 85025